=== PATIENT | male | born 1990 | race Two or more races ===

== ENCOUNTER → 2016-11-18 | Outpatient (CLI) | payer MEDICARE ==
--- NOTE | 2016-11-19 10:50 | REP ---
MRI RIGHT HIP WITHOUT AND WITH IV CONTRAST: HISTORY: Right hip mass. Comparison sonography is from November 06, 2016. Report of a radiographic series from [facility] dated October 22, 2016 describes a 9 cm soft tissue mass density in the anterior and lateral aspect adjacent to the proximal femur. MRI was recommended. Additional history obtained upon speaking with the referring provider includes a history of transverse myelitis and urinary tract infections and incontinence. The patient is 4 months status post artificial urinary sphincter implant to treat urinary incontinence. He noticed a lump along the lateral aspect of the right hip. TECHNIQUE: Axial, coronal, and sagittal imaging planes are utilized. T1- and T2-weighted scans are included with and without fat saturation. MRI CONTRAST ENHANCEMENT DOSE: 23 mL of intravenous ProHance is administered. MRI FINDINGS: Cortical and medullary bone signal intensity are normal in the proximal femurs and in the visualized bony pelvic ring. No fractures seen. There is a trident-shaped 2.7 x 2.6 x 2.7 cm partially fluid-filled implant at the base of the prostate across the bladder neck, consistent with the artificial urinary sphincter implant. There is metallic field susceptibility artifact emanating from the right upper scrotal sac related to this. No other intrapelvic pathology is seen. There does appear to be a small quantity of pelvic fluid above the bladder. There is a soft tissue process along the lateral aspect of the greater trochanter of the proximal femur measuring 5.6 cm medial to lateral x 4.6 cm anterior to posterior x 7.2 cm cranial to caudal. This is felt to correspond with the palpable abnormality. There is some irregular peripheral enhancement but no central enhancement in this lesion. On precontrast imaging, the lesion appears to be comprised largely of subcutaneous fat. T2-weighted preinjection imaging shows some edematous change in and amongst the fat lobules within the lesion, and there is a peripheral pattern of contrast enhancement. This is felt to be most compatible with an area of subcutaneous fat necrosis possibly posttraumatic. No other mass lesion is seen. Diffuse skeletal muscle atrophy is noted, consistent with the patient's history of transverse myelitis. IMPRESSION: 1. A 5.6 x 4.6 x 7.2 cm irregularly-shaped, peripherally enhancing subcutaneous lesion at the level of the right hip at the greater trochanter. This is felt to be most compatible with fat necrosis perhaps postoperative. 2. Incidental artificial urinary sphincter implant at the bladder base and in the right scrotal soft tissues. 3. Diffuse skeletal muscle atrophy. Signed by Rashi Brownlee MD 11/19/2016 01:59 P
== END ==
LOC: M RAD 17:04
PROVIDERS: ATTEND Physician Assistant
DX: R22.41 Localized swelling, mass and lump, right lower limb (principal)
CPT/HCPCS: 73723; A9576